=== PATIENT | female | born 1965 | race Hispanic/Latino ===

== ENCOUNTER 2025-02-28 10:02 | Emergency (ER) | payer BC ==
[~2025-02-28] VITALS: Ht 154.9 cm; Wt 79.4 kg
--- NOTE | 2025-02-28 10:05 | NUR ---
UA CUP PROVIDED
--- NOTE | 2025-02-28 10:30 | ERN ---
General Chief Complaint: LOWER EXTREMITY EDEMA Stated Complaint: SENT DUE TO DVT LEFT LEG Time Seen by MD: 10:08 History of Present Illness Initial Comments 59F presents for L lower leg swelling and possible DVT. Patient reports 1 week of leg swelling. She had an US performed today and was told that she has a DVT. She denies dyspnea, palpitations, other bleeding, OCP use, recent surgery, or an other conditions or symptoms. Allergies: Coded Allergies: No Known Allergies (Unverified Allergy, Unknown, 02/28/25) Home Meds Active Scripts Apixaban (Eliquis) 5 Mg Tablet, 1 TAB PO BID for 30 Days, #74 TAB 0 Refills Prov:KWASI GÓMEZ DO 02/28/25 Past Medical History Past Medical History: No Pertinent History Past Surgical History: Hysterectomy ROS Dictation CONSTITUTIONAL: No chills, no fever, no weakness, no diaphoresis, no malaise. HEAD/FACE: No signs of trauma. EENT: No eye pain, no blurred vision, no tearing, no double vision, no ear pain, no ear discharge, no nose pain, no nasal congestion, no throat pain, no throat swelling, no mouth pain. RESPIRATORY: No cough, no orthopnea, no SOB, no stridor, no wheezing. CARDIOVASCULAR: No chest pain, no edema, no palpitations, no syncope. GASTROINTESTINAL/ABDOMINAL: No abdominal pain, no constipation, no diarrhea, no nausea, no vomiting. GENITOURINARY: No abnormal discharge, no dysuria, no frequent urination, no hematuria. No complaints of pain in the genitals. MUSCULOSKELETAL: L lower leg pain INTEGUMENTARY: No change in color, no change in hair/nails, no dryness, no lesion, no lumps, no rash. NEUROLOGICAL/PSYCH: No anxiety, not depressed, no emotional problem, no headache, no numbness, no pre-existing deficit, no history of seizures, no tremors, no weakness. HEMATOLOGIC/LYMPHATIC: Not anemic, no history of blood clots, no apparent bleeding, no bruising, glands not swollen. All Systems Negative, Except as Noted. Physical Exam Physical Exam Dictation VITAL SIGNS: Reviewed. GENERAL APPEARANCE: Alert, oriented x3, no acute distress. HEAD AND FACE: Non-traumatic. EYES: PERRL, pink conjunctivas, eyelid no trauma, anterior chamber clear. EARS: Pinnas intact and no signs of trauma or erythema. Ear canals clear and no discharge. TMs no erythema. NOSE: No discharge, no bleeding. OROPHARYNX: Mouth normal, teeth no caries, tongue pink. Pharynx clear, no erythema. Tonsils no exudates, no abscesses noted. Mucous membrane moist. NECK: Supple, non-tender, no thyromegaly, no masses, no JVD, no bruits. BREAST: Deferred. CHEST: No tenderness, no crepitus, no paradoxical movement, no retractions. LUNGS: Clear, well-ventilated, symmetric, no rales, no wheezing, no rhonchi, no stridor, good breath sounds bilaterally. HEART: Regular rate, regular rhythm, no murmur, no gallops. VASCULAR: No peripheral edema. ABDOMEN: Soft, positive bowel sounds, nondistended, no guarding, nontender, no rebound, no masses no hepatomegaly, no splenomegaly, no Ray's sign, no hernias. RECTAL: Deferred. GENITAL: Deferred. NEUROLOGICAL: Normal speech, gross motor function intact, gross sensory function intact. MUSCULOSKELETAL: Neck nontender, full range of motion, back nontender, full range of motion. EXTREMITIES: Nontender, full range of motion. SKIN: Color pink, dry, no turgor, no rash, no lacerations, no abrasions, no contusions. LYMPHATICS: Deferred. Results Laboratory and Microbiology Lab and Micro Result Laboratory Tests Test 02/28/25 10:29 White Blood Count 5.7 K/uL (4.8-10.8) Red Blood Count 4.51 MIL/uL (4.00-5.50) Hemoglobin 13.5 g/dL (12.0-16.0) Hematocrit 40.3 % (36-48) Mean Corpuscular Volume 89.4 fL (79-99) Mean Corpuscular Hemoglobin 29.9 pg (27.0-33.0) Mean Corpuscular Hemoglobin Concent 33.5 g/dL (32.0-36.0) Red Cell Distribution Width 13.0 % (11.0-15.5) Platelet Count 239 K/uL (130-400) Mean Platelet Volume 9.7 fL (7.5-10.5) Immature Granulocyte % (Auto) 0.4 % (0-1) Neutrophils (%) (Auto) 47.0 % (40.0-77.0) Lymphocytes (%) (Auto) 42.2 % (21.0-51.0) Monocytes (%) (Auto) 7.2 % (3.0-13.0) Eosinophils (%) (Auto) 2.8 % (0.0-8.0) Basophils (%) (Auto) 0.4 % (0.0-5.0) Neutrophils # (Auto) 2.7 K/uL (1.8-7.7) Lymphocytes # (Auto) 2.4 K/uL (1.0-4.8) Monocytes # (Auto) 0.4 K/uL (0.1-1.0) Eosinophils # (Auto) 0.16 K/uL (0.00-0.70) Basophils # (Auto) 0.02 K/uL (0.00-0.20) Absolute Immature Granulocyte (auto 0.02 K/uL (0-1) Nucleated Red Blood Cells 0.0 % (0.0-0.19) Prothrombin Time 10.5 SEC (9.6-11.6) Prothromb Time International Ratio 0.99 (0.85-1.15) Activated Partial Thromboplast Time 25.8 SEC (26.3-35.5) L Urine Color LIGHT-YELLOW (YELLOW) Urine Appearance CLEAR (CLEAR) Urine pH 5.5 (5.0-8.0) Urine Specific [place] 1.020 (1.001-1.031) Urine Protein NEGATIVE mg/dL (NEGATIVE) Urine Glucose (UA) NEGATIVE mg/dL (NEGATIVE) Urine Ketones NEGATIVE mg/dL (NEGATIVE) Urine Occult Blood +- (TRACE) (NEGATIVE) H Urine Nitrate NEGATIVE (NEGATIVE) Urine Bilirubin NEGATIVE mg/dL (NEGATIVE) Urine Urobilinogen 0.2 mg/dL (0.2-1.0) Urine Leukocyte Esterase NEGATIVE Danielle/uL Urine RBC 0-1 /HPF (0-1) Urine WBC 2-5 /HPF (0-1) H Urine Squamous Epithelial Cells FEW /HPF (0-2) Urine Bacteria None /HPF (None Seen) Sodium Level 139 mmol/L (136-145) Potassium Level 3.6 mmol/L (3.5-5.1) Chloride Level 102 mmol/L (101-111) Carbon Dioxide Level 28 mmol/L (21-32) Blood Urea Nitrogen 19 mg/dL (7-18) H Creatinine 0.6 mg/dL (0.5-1.0) Glomerular Filtration Rate Calc 103 mL/min (>90) Random Glucose 96 mg/dL (70-105) Total Calcium 9.4 mg/dL (8.5-10.1) Total Creatine Kinase 101 U/L (21-232) Troponin I High Sensitivity 5.3 ng/L (4-50) B-Type Natriuretic Peptide 35 pg/mL (0-100) MDM CC: Left leg swelling concern for DVT Historian: Patient Comorbidities: None Limitations by social determinants of health: None Differential diagnosis: DVT, MSK injury, PE, other. Vital signs: Stable, remained stable in the ER. EKG: Sinus rhythm, rate 62, normal axis, good R-wave progression, intervals are stable no STEMI. Independently interpreted by me. Labs show no leukocytosis or anemia. Coags normal. Metabolic panel is unremarkable. Troponin BNP normal. Urinalysis normal. Venous ultrasound shows a partial deep vein thrombosis in the left popliteal vein. Also thrombosis in the left gastrocnemius veins. Patient has a an unprovoked DVT, unclear etiology. She is very low risk and management is appropriate for outpatient therapy. She is hemodynamically stable, no signs of hypotension hypoxia or evidence of PE. No phlegmasia cerulea dolens, masses swelling or gangrene. She has no high-risk for bleeding. She has no significant comorbidities such as active cancer or obesity recurrent admission. She is p.o. tolerant. She has a good insurance. Patient received a dose of Lovenox here. I did consult her primary care provider. We agreed that she would he a good candidate for outpatient treatment. We will give her a prescription for Eliquis. Patient agrees with the plan. She will discharge and follow up with her PCP for further workup. ED Course Orders Procedure Category Date Status Time Cardiac Panel LAB 02/28/25 Complete 10:11 Cbc With Differential LAB 02/28/25 Complete 10:11 Basic Metabolic Panel LAB 02/28/25 Complete 10:11 Prothrombin Time With LAB 02/28/25 Complete INR 10:11 Partial LAB 02/28/25 Complete Thromboplastin Time 10:11 Urinalysis Profile LAB 02/28/25 Complete 10:11 B-Type Natriuretic LAB 02/28/25 Complete Peptide 10:11 Us Venous Doppler US 02/28/25 Resulted Unilateral 10:11 12 Lead Ekg Tracing- EKG 02/28/25 Complete Technical 10:11 Chest 1vw RAD 02/28/25 Resulted 10:11 Enoxaparin Sodium 80 PHA 02/28/25 Complete Mg/0.8 Ml (Lovenox 12:00 Current Medications Medications (Trade) Dose Ordered Sig/Tony Route PRN Reason Start Time Stop Time Status Last Admin Dose Admin Enoxaparin Sodium (Lovenox 80mg) 80 mg ONCE ONCE SQ 02/28/25 12:00 02/28/25 12:01 DC 02/28/25 12:05 Vital Signs Date Time Temp Pulse Resp B/P (MAP) Pulse Ox O2 Delivery O2 Flow Rate FiO2 02/28/25 11:53 97.5 71 20 140/63 99 Room Air* 0 21 02/28/25 10:03 97.3 64 20 145/60 97 Room Air DX & DISP Disposition: Discharge Departure Impression: Primary Impression: Left leg DVT Condition: Stable Scripts Apixaban (Eliquis) 5 Mg Tablet 1 TAB PO BID for 30 Days, #74 TAB 0 Refills Prov: KWASI GÓMEZ DO 02/28/25 Additional Instructions: You have a popliteal DVT in your left leg. I have prescribed Eloquis. Take 10mg (2 tabs) twice per day for the next 7 days. After that, take 5mg (1 tab) twice per day. As we discussed, you will likely need to take this medication for at least 90 days. Your other labs are unremarkable. As we discussed, you likely need further studies. Please follow up with Nelly. If you are unable to coordinate the Eloquis, please contact the emergency department. As we discussed, please return to the emergency department if you have any shortness of breath, chest pains, coughing up blood, lightheadedness or fainting, or any signs of concerning bleeding. Referrals: SELF,REFERRAL (PCP) KWASI GÓMEZ DO Feb 28, 2025 10:30
--- NOTE | 2025-02-28 10:31 | EKG ---
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
[2025-02-28 10:34] LABS: IMMATURE GRANULOCYTE ABSOLUTE 0.02 K/uL (0-1); NUCLEATED RED BLOOD CELLS 0.0 % (0.0-0.19); PLATELET COUNT (AUTO) 239 K/uL (130-400); RED BLOOD CELL COUNT(AUTO) 4.51 MIL/uL (4.00-5.50); RED CELL DISTRIBUTION WIDTH 13.0 % (11.0-15.5); WHITE BLOOD COUNT (AUTO) 5.7 K/uL (4.8-10.8)
[2025-02-28 10:42] LABS: APPEARANCE,URINE CLEAR (CLEAR); GLUCOSE, URINE (UA) NEGATIVE (NEGATIVE); LEUKOCYTE ESTERASE ,URINE NEGATIVE Leu/uL (NEGATIVE); NITRATE,URINE NEGATIVE (NEGATIVE); OCCULT BLOOD,URINE +- (TRACE) (NEGATIVE)
[2025-02-28 10:44] LABS: ADD UA MICROSCOPIC YES
[2025-02-28 10:52] LABS: CREATINE KINASE, TOTAL 101.0 U/L (21-232); CREATININE 0.6 mg/dL (0.5-1.0); GLOMERULAR FILTR. RATE CALC 103.0 mL/min (>90); GLUCOSE,RANDOM 96.0 mg/dL (70-105); SODIUM SERUM 139.0 mmol/L (136-145); UREA NITROGEN, BLOOD 19.0 mg/dL (7-18)
[2025-02-28 10:53] LABS: INR 0.99 (0.85-1.15)
[2025-02-28 11:02] LABS: SQUAMOUS EPITHELIAL CELL,UR FEW /HPF (0-2)
--- NOTE | 2025-02-28 11:11 | HMCIMG ---
EXAM: Ultrasound for Deep Venous Thrombosis, Left Lower Extremity CLINICAL HISTORY: Rule out DVT. TECHNIQUE: Real-time ultrasound of the deep veins of the left lower extremity performed with grayscale imaging, compression maneuvers, color Doppler, and spectral waveform analysis. COMPARISON: None provided. FINDINGS: Common femoral vein, superficial femoral vein (proximal, mid, distal): Patent, compressible, with normal color Doppler flow. Popliteal vein: Partial thrombosis present. Gastrocnemius veins: Thrombosis present. Posterior tibial and peroneal veins: Patent, normal flow. No popliteal fossa cyst or abnormal soft tissue fluid collection. IMPRESSION: Partial deep venous thrombosis in the left popliteal vein. Thrombosis in the left gastrocnemius veins. /[place]
--- NOTE | 2025-02-28 11:46 | HMCIMG ---
EXAM: CR Chest, 1 View. CLINICAL HISTORY: dvt COMPARISON: 03/23/10 16:47 EDT CR - XR CHEST, 1 VIEW FRONTAL FINDINGS: LUNGS: The lungs show no infiltrate or other acute finding. PLEURAL SPACES: No evidence of pleural effusion or pneumothorax. MEDIASTINUM: The cardiomediastinal silhouette is within normal limits. BONES: No acute osseous abnormality. IMPRESSION: No acute cardiopulmonary pathology is evident. /[place]
[2025-02-28] MEDS ORDERED: APIX5TAB PO (11:51)
[2025-02-28 11:53] VITALS: BP 140/63; PULSE 71; RESP 20; TEMP 97.5; O2SAT 99
[2025-02-28] MEDS: ENOXAPARIN SODIUM 80 MG/0.8 ML SQ ONE (12:05)
== END 2025-02-28 12:11 | disposition home or self-care (01) ==
LOC: EDH 10:02
DX: I82.402 Acute embolism and thrombosis of unspecified deep veins of left lower extremity (principal); Z79.01 Long term (current) use of anticoagulants; Z90.710 Acquired absence of both cervix and uterus
CPT/HCPCS: 99284; 93971; 71045; 82550; 84484; 80048; 83880; 85025; 85610; 85730; 81001; 36415; 96372; 93005; J1650

== ENCOUNTER 2025-05-28 09:35 | Emergency (ER) | payer BC ==
[~2025-05-28] VITALS: Ht 154.9 cm; Wt 81.2 kg
[~2025-05-28 09:35] MED LIST: APIX5TAB PO
[2025-05-28] MEDS ORDERED: CYCL10TA16 PO (11:44)
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
[2025-05-28 12:07] VITALS: BP 143/69; PULSE 62; RESP 20; TEMP 98.1; O2SAT 98
--- NOTE | 2025-05-28 12:19 | HMCIMG ---
EXAM: US for Deep Venous Thrombosis, right Lower Extremity. CLINICAL HISTORY: Leg Pain and Swelling TECHNIQUE: Real-time ultrasound scan of the veins of the right lower extremity with color Doppler flow, spectral waveform analysis and compression. COMPARISON: None provided. FINDINGS: DEEP VEINS: The common femoral, superficial femoral, and popliteal veins are echolucent and compressible. There is normal color Doppler flow throughout. The visualized calf veins appear patent. SOFT TISSUES: No popliteal fossa cyst or other abnormalities. IMPRESSION: 1. No evidence of deep vein thrombosis in the right lower extremity. /[place]
== END 2025-05-28 12:08 | disposition home or self-care (01) ==
LOC: EDH 09:35
DX: S80.11XA Contusion of right lower leg, initial encounter (principal); M79.604 Pain in right leg; E78.00 Pure hypercholesterolemia, unspecified; Z86.718 Personal history of other venous thrombosis and embolism; Z79.01 Long term (current) use of anticoagulants; Z90.710 Acquired absence of both cervix and uterus; V89.2XXA Person injured in unspecified motor-vehicle accident, traffic, initial encounter; Y93.89 Activity, other specified; Y92.488 Other paved roadways as the place of occurrence of the external cause; Y99.8 Other external cause status
CPT/HCPCS: 93971; 99284